=== PATIENT | male | born 1980 | race Asian ===

== ENCOUNTER 2018-11-19 08:39 | Emergency (ER) | payer OTHER ==
[~2018-11-19] VITALS: Ht 162.6 cm; Wt 66.7 kg
[2018-11-19 08:49] VITALS: Ht 162.6 cm; Wt 66.7 kg
[2018-11-19 12:19] VITALS: BP 110/63
== END 2018-11-19 12:19 | disposition home or self-care (01) ==
LOC: EDBD 08:39 → ED 08:39
DX: J10.1 Influenza due to other identified influenza virus with other respiratory manifestations (principal); F17.210 Nicotine dependence, cigarettes, uncomplicated
CPT/HCPCS: 87804; 99406